=== PATIENT | female | born 1975 | race Caucasian/White ===

== ENCOUNTER 2021-01-09 15:44 | Emergency (ER) | payer MEDICAID ==
[~2021-01-09] VITALS: Ht 172.7 cm; Wt 137.0 kg
[2021-01-09 15:53] VITALS: Ht 172.7 cm; Wt 137.0 kg
[2021-01-09 17:19] LABS: BASOPHIL % 0.4 % (0.2-1.3); PLATELET COUNT 247 x10^3mcL (179-408)
[2021-01-09 17:22] LABS: RED CELL DISTRIBUTION WIDTH 15.4 % (12.3-17.7)
[2021-01-09 17:38] LABS: CALCIUM 9.3 mg/dL (8.5-10.1); CARBON DIOXIDE 27.9 mmol/L (21-32); CHLORIDE SERUM 102 mmol/L (98-107); CREATININE SERUM 0.7 mg/dL (0.6-1.0); GFR1 > 60 mL/min; GLUCOSE SERUM 111 mg/dL (74-106); POTASSIUM SERUM 3.8 mmol/L (3.5-5.1); SODIUM SERUM 137 mmol/L (136-145)
[2021-01-09 17:43] LABS: ALBUMIN 3.6 g/dL (3.4-5.0); ALKALINE PHOSPHATASE 104 U/L (46-116); ALT/SGPT 48 U/L (14-59); AST/SGOT 29 U/L (15-37); BILIRUBIN TOTAL 0.2 mg/dL (0.20-1.00); LIPASE 123 IU/L (73-393)
[2021-01-09 17:55] LABS: microscopic required? YES; urine erythrocyte TRACE (NEGATIVE)
[2021-01-09] MEDS ORDERED: NAPROXEN375 MG PO (18:04)
[2021-01-09] MEDS ORDERED: PEPCID40 MG PO (18:06)
[2021-01-09 19:35] VITALS: BP 161/90
== END 2021-01-09 19:35 | disposition home or self-care (01) ==
LOC: ED 15:44
PROVIDERS: Emergency Medicine
DX: K42.9 Umbilical hernia without obstruction or gangrene (principal); E66.01 Morbid (severe) obesity due to excess calories; E05.90 Thyrotoxicosis, unspecified without thyrotoxic crisis or storm; Z90.89 Acquired absence of other organs; Z90.49 Acquired absence of other specified parts of digestive tract; Z98.890 Other specified postprocedural states
CPT/HCPCS: J2270; J2405; J7030